=== PATIENT | female | born 1990 | race Caucasian/White ===

== ENCOUNTER 2017-03-19 13:02 | Emergency (ER) | payer OTHER ==
[~2017-03-19] VITALS: Ht 162.5 cm; Wt 49.9 kg
[~2017-03-19 13:02] MED LIST: AMOXICILLIN500 M2 PO; BACTRIM DS 8001 TA1 PO; CYCLOBENZAPRINE10 MG PO; DIFLUCAN150 MG PO; FLONASE ALLERG9.9 ML NS; IBU800 M1 PO; MOTRIN800 MG PO; NAPROSYN500 MG PO; NORCO 325 MG-51 TAB PO; PARAFON FORTE500 MG PO; PREDNISONE20 M1 PO; PYRIDIUM200 M1 PO; VISTARIL50 MG PO; ZOFRAN ODT4 MG SL
[2017-03-19] MEDS ORDERED: NEURONTIN100 MG PO (13:07)
[2017-03-19] MEDS ORDERED: SEROQUEL50 MG PO (13:07)
[2017-03-19 13:25] LABS: BILIRUBIN NEGATIVE (NEGATIVE); BLOOD TRACE-INTACT (NEGATIVE); CLARITY CLOUDY (CLEAR); COLOR YELLOW (YELLOW); GLUCOSE NEGATIVE (NEGATIVE); KETONE NEGATIVE (NEGATIVE); LEUKO ESTERASE 2+ (NEGATIVE); NITRITE POSITIVE (NEGATIVE); PROTEIN NEGATIVE (NEGATIVE); SPECIFIC GRAVITY >= 1.030 (1.005-1.030); UROBILINOGEN 0.2 E.U./dl (0.2-1.0)
[2017-03-19 13:37] LABS: BACTERIA 4+; RBC 0-2 rbc/hpf (0-2); URINE REFLEX COMMENT YES (NO); WBC TNTC wbc/hpf (0-5)
[2017-03-19] MEDS ORDERED: CIPRO500 MG PO (14:05)
== END 2017-03-19 14:50 | disposition home or self-care (01) ==
LOC: ED 13:02
PROVIDERS: Nurse Practitioner Family
DX: S61.011A Laceration without foreign body of right thumb without damage to nail, initial encounter (principal); N39.0 Urinary tract infection, site not specified; F17.200 Nicotine dependence, unspecified, uncomplicated; Z98.51 Tubal ligation status; W45.8XXA Other foreign body or object entering through skin, initial encounter; Y93.89 Activity, other specified; Y92.89 Other specified places as the place of occurrence of the external cause; Y99.9 Unspecified external cause status

== ENCOUNTER → 2024-06-18 | Outpatient (CLI) | payer OTHER ==
[~2024-06-18] MED LIST changes: +CIPRO500 MG PO; +NEURONTIN100 MG PO; +SEPTDS PO; +SEROQUEL50 MG PO
== END | disposition home or self-care (01) ==
LOC: RAD 15:06
PROVIDERS: ATTEND Nurse Practitioner Family
DX: M25.511 Pain in right shoulder (principal)